=== PATIENT | male | born 1980 | race Caucasian/White ===

== ENCOUNTER → 2021-11-01 19:13 | Outpatient (CLI) | payer OTHER, SELFPAY | PROVIDERS: Visit Provider Nurse Practitioner Family | DX: U07.1 COVID-19 (principal) | CPT/HCPCS: C9803; U0003; U0005 ==

== ENCOUNTER → 2022-11-25 21:18 | Outpatient (CLI) | payer OTHER, SELFPAY ==
[2022-11-25 19:36] LABS: Basophils # 0.1 K/mm3 (0-0.2); Basophils % 0.5 % (0.1-2.0); Eosinophils # 0.2 K/mm3 (0.0-0.4); Eosinophils % 1.9 % (0.1-12.0); Hematocrit 46.2 % (42.0-52.0); Hemoglobin 15.2 g/dL (14.1-18.0); Lymphocytes # 2.8 K/mm3 (0.7-4.5); Lymphocytes % 24.4 % (10-50); Mean Corpuscular Hemoglobin 30.3 pg (27.0-31.2); Mean Corpuscular Volume 91.8 fl (80-94); Mean Platelet Volume 8.9 fl (7.4-10.4); Monocytes # 0.7 K/mm3 (0.1-1.0); Monocytes % 5.7 % (1.7-9.3); Neutrophils # 7.8 K/mm3 (1.8-7.8); Neutrophils % 67.5 % (37.0-80.0); Platelet Count 325 K/mm3 (142-424); Red Blood Count 5.03 M/mm3 (4.60-6.20); Red Cell Distribution Width 13.1 % (11.5-17.5); White Blood Count 11.5 K/mm3 (4.8-10.8)
[2022-11-25 20:05] LABS: Alanine Aminotransferase 39 U/L (12-78); Albumin Level 4.5 g/dl (3.5-5.0); Albumin/Globulin Ratio 1.5 (1.1-1.8); Alkaline Phosphatase 105 U/L (38-126); Anion Gap 13.8 mEq/L (5-15); Aspartate Amino Transferase 32 U/L (17-59); Bilirubin,Total 0.4 mg/dl (0.2-1.3); Blood Urea Nitrogen 23 mg/dl (9-20); Calcium 9.4 mg/dl (8.4-10.2); Carbon Dioxide 29 mmol/L (22.0-30.0); Chloride 100 mmol/L (98-107); Chol/HDL Ratio 5.3 (1-3.5); Cholesterol 181 mg/dl (140-200); Estimated Glomerular Filt Rate 66 ml/min (>60); GFR (African American) 80 ML/MIN (>60); Globulin 3.1 g/dL (1.3-3.2); Glucose 117 mg/dl (74-100); HDL Cholesterol 34 mg/dl (40-60); Potassium 4.8 mmoL/L (3.5-5.1); Sodium 138 mmol/L (136-145); Total Protein,Serum 7.6 g/dl (6.3-8.2); Triglycerides 218 mg/dl (30-150); VLDL Cholesterol 44 mg/dL (0-40)
[2022-11-25 20:16] LABS: Direct LDL Cholesterol 124.83 mg/dL (100-129)
[2022-11-25 20:18] LABS: Microalbumin/Creatinine Ratio 13.4
[2022-11-25 20:28] LABS: Creatinine,Urine Random 116 mg/dL (Not Estab.); Hemoglobin A1C 5.8 % (4.0-6.0)
[2022-11-25 20:33] LABS: Thyroid Stimulating Hormone 1.65 uIU/mL (0.465-4.68)
== END ==
PROVIDERS: PCP Nurse Practitioner; Visit Provider Nurse Practitioner
DX: I10 Essential (primary) hypertension (principal); R73.01 Impaired fasting glucose; E78.5 Hyperlipidemia, unspecified; E66.9 Obesity, unspecified; Z68.41 Body mass index [BMI] 40.0-44.9, adult
CPT/HCPCS: 80053; 80061; 82043; 82570; 83036; 84443; 85025

== ENCOUNTER → 2022-12-03 07:46 | Outpatient (CLI) | payer OTHER, SELFPAY ==
--- NOTE | 2022-12-03 07:47 | MR_ITS ---
FINAL REPORT CLINICAL HISTORY: migraine. Lightheadedness. FINDINGS: Multiplanar MR imaging of the brain was performed without and with contrast. There is no evidence of intracranial hemorrhage or mass. No abnormal extra-axial fluid collection is seen. The ventricular size is within normal limits. There is no evidence of shift of the midline structures. The posterior fossa and brainstem have an unremarkable appearance. No area of abnormal restricted diffusion is identified. No abnormal contrast enhancement is seen. There is a retention cyst or polyp in the right maxillary sinus. IMPRESSION: No acute intracranial abnormality identified. Reviewed, Interpreted and Dictated by Lewis Lynn III, MD Transcribed by Farzaneh Burton Authenticated and [facility]
== END ==
LOC: RAD 07:46
PROVIDERS: PCP Nurse Practitioner; Visit Provider Nurse Practitioner
DX: G43.909 Migraine, unspecified, not intractable, without status migrainosus (principal)
CPT/HCPCS: 70553; A9576

== ENCOUNTER → 2023-02-18 23:36 | Outpatient (CLI) | payer OTHER, SELFPAY ==
[2023-02-18 17:40] LABS: Basophils % 0.3 % (0.1-2.0); Eosinophils # 0.1 K/mm3 (0.0-0.4); Eosinophils % 1.3 % (0.1-12.0); Hemoglobin 15.2 g/dL (14.1-18.0); Lymphocytes # 2.8 K/mm3 (0.7-4.5); Lymphocytes % 30.6 % (10-50); Mean Corpuscular HGB Conc 33.8 g/dL (31.8-35.4); Mean Corpuscular Hemoglobin 31.2 pg (27.0-31.2); Mean Corpuscular Volume 92.3 fl (80-94); Mean Platelet Volume 8.9 fl (7.4-10.4); Monocytes # 0.6 K/mm3 (0.1-1.0); Monocytes % 6.2 % (1.7-9.3); Neutrophils # 5.6 K/mm3 (1.8-7.8); Neutrophils % 61.6 % (37.0-80.0); Platelet Count 269 K/mm3 (142-424); Red Blood Count 4.87 M/mm3 (4.60-6.20); Red Cell Distribution Width 13.1 % (11.5-17.5)
[2023-02-18 18:06] LABS: Erythrocyte Sedimentation Rate 14 mm/hr (0-15)
[2023-02-18 18:09] LABS: C-Reactive Protein 3.9 mg/L (0-4)
[2023-02-18 19:10] LABS: Vitamin B12 621 pg/mL (239-931)
[2023-02-18 19:12] LABS: Folate 6.23 ng/mL
[2023-02-20 09:14] LABS: Rapid Plasma Reagin Ab Titer Non Reactive (NonRea<1:1)
[2023-02-26 20:51] LABS: Antinuclear Antibodies (ANA) Negative
== END ==
PROVIDERS: Nurse Practitioner Family; PCP Nurse Practitioner; Visit Provider Nurse Practitioner
DX: R51.9 Headache, unspecified (principal); R06.83 Snoring; E66.01 Morbid (severe) obesity due to excess calories; Z68.41 Body mass index [BMI] 40.0-44.9, adult
CPT/HCPCS: 82607; 82746; 85025; 85651; 86038; 86140; 86225; 86235; 86593

== ENCOUNTER → 2023-03-03 19:11 | Outpatient (CLI) | payer OTHER, SELFPAY | PROVIDERS: PCP Family Medicine; Visit Provider Nurse Practitioner Family | DX: G47.33 Obstructive sleep apnea (adult) (pediatric) (principal); R51.9 Headache, unspecified; I10 Essential (primary) hypertension; R06.83 Snoring; E66.01 Morbid (severe) obesity due to excess calories; Z68.41 Body mass index [BMI] 40.0-44.9, adult | CPT/HCPCS: G0399 ==

== ENCOUNTER 2023-12-22 21:11 | Outpatient (CLI) | payer OTHER, SELFPAY ==
[2023-12-22 18:34] LABS: Basophils # 0.1 K/mm3 (0-0.2); Basophils % 0.6 % (0.1-2.0); Eosinophils # 0.2 K/mm3 (0.0-0.4); Eosinophils % 2.1 % (0.1-12.0); Hematocrit 50.2 % (42.0-52.0); Hemoglobin 16.5 g/dL (14.1-18.0); Lymphocytes # 1.4 K/mm3 (0.7-4.5); Lymphocytes % 17.6 % (10-50); Mean Corpuscular HGB Conc 32.9 g/dL (31.8-35.4); Mean Corpuscular Hemoglobin 32.2 pg (27.0-31.2); Mean Platelet Volume 9.4 fl (7.4-10.4); Monocytes # 0.5 K/mm3 (0.1-1.0); Monocytes % 6.4 % (1.7-9.3); Neutrophils % 73.4 % (37.0-80.0); Platelet Count 283 K/mm3 (142-424); Red Blood Count 5.12 M/mm3 (4.60-6.20); Red Cell Distribution Width 13.4 % (11.5-17.5); White Blood Count 8.2 K/mm3 (4.8-10.8)
[2023-12-22 18:47] LABS: Alanine Aminotransferase 50 U/L (12-78); Albumin Level 4.3 g/dl (3.5-5.0); Albumin/Globulin Ratio 1.5 (1.1-1.8); Alkaline Phosphatase 102 U/L (38-126); Anion Gap 13.3 mEq/L (5-15); Aspartate Amino Transferase 41 U/L (17-59); Bilirubin,Total 0.9 mg/dl (0.2-1.3); Blood Urea Nitrogen 21 mg/dl (9-20); Calcium 9.6 mg/dl (8.4-10.2); Carbon Dioxide 24 mmol/L (22.0-30.0); Chloride 106 mmol/L (98-107); Cholesterol 198 mg/dl (140-200); Estimated Glomerular Filt Rate 82 ml/min (>60); GFR (African American) 99 ML/MIN (>60); Globulin 2.8 g/dL (1.3-3.2); Glucose 104 mg/dl (74-100); HDL Cholesterol 33 mg/dl (40-60); Potassium 4.3 mmoL/L (3.5-5.1); Sodium 139 mmol/L (136-145); Total Protein,Serum 7.1 g/dl (6.3-8.2); Triglycerides 84 mg/dl (30-150); VLDL Cholesterol 17 mg/dL (0-40)
[2023-12-22 18:58] LABS: Direct LDL Cholesterol 129.28 mg/dL (100-129)
[2023-12-22 19:05] LABS: 25-OH Vitamin D, Total 25.8 ng/mL (30-100)
[2023-12-22 19:17] LABS: Thyroid Stimulating Hormone 1.01 uIU/mL (0.465-4.68)
[2023-12-22 19:36] LABS: Vitamin B12 861 pg/mL (239-931)
[2023-12-22 19:59] LABS: Microalbumin/Creatinine Ratio 15.6
[2023-12-22 20:01] LABS: Creatinine,Urine Random 139 mg/dL (Not Estab.)
[2023-12-22 20:17] LABS: Hemoglobin A1C 5.6 % (4.0-6.0)
[2023-12-24 10:11] LABS: HIV Screen 4th Generation wRfx Non Reactive (Non Reactive)
[2023-12-24 11:11] LABS: Rapid Plasma Reagin Ab Titer Non Reactive titer (NonRea<1:1)
[2023-12-24 12:53] LABS: HBsAg Screen Negative (Negative); HCV Ab Non Reactive (Non Reactive); Hep A Ab, IGM Negative (Negative); Hep B Core Ab, IgM Negative (Negative)
[2023-12-26 10:17] LABS: HSV 2 IgG, Type Spec <0.91
[2023-12-27 05:49] LABS: Neisseria gonorrhoeae, NAA Negative (Negative)
[2023-12-28 08:03] LABS: Trich vag NAA Negative
== END 2023-12-22 23:59 ==
LOC: LAB.DROPOF 21:11
PROVIDERS: PCP Nurse Practitioner; Visit Provider Nurse Practitioner
DX: I10 Essential (primary) hypertension (principal); R73.01 Impaired fasting glucose; E78.5 Hyperlipidemia, unspecified; E55.9 Vitamin D deficiency, unspecified; E66.9 Obesity, unspecified; Z68.39 Body mass index [BMI] 39.0-39.9, adult; Z11.3 Encounter for screening for infections with a predominantly sexual mode of transmission; Z11.4 Encounter for screening for human immunodeficiency virus [HIV]; Z20.2 Contact with and (suspected) exposure to infections with a predominantly sexual mode of transmission; Z79.899 Other long term (current) drug therapy
CPT/HCPCS: 80053; 80061; 80074; 82043; 82306; 82570; 82607; 83036; 84439; 84443; 85025; 86593; 86695; 86703; 86790; 87491; 87591; 87661; G0432

== ENCOUNTER 2025-01-25 09:20 | Outpatient (CLI) | payer OTHER, SELFPAY ==
[2025-01-25 18:33] LABS: Basophils # 0.1 K/mm3 (0-0.2); Basophils % 0.6 % (0.1-2.0); Eosinophils # 0.3 Kmm3 (0.0-0.4); Eosinophils % 3.1 % (0.1-12.0); Hematocrit 53.2 % (42.0-52.0); Hemoglobin 17.2 g/dL (14.1-18.0); Lymphocytes # 1.9 K/mm3 (0.7-4.5); Lymphocytes % 23.4 % (10-50); Mean Corpuscular HGB Conc 32.3 g/dL (31.8-35.4); Mean Corpuscular Hemoglobin 30.8 pg (27.0-31.2); Mean Corpuscular Volume 95.2 fl (80-94); Mean Platelet Volume 10.8 fl (7.4-10.4); Monocytes # 0.7 K/mm3 (0.1-1.0); Monocytes % 8.3 % (1.7-9.3); Neutrophils # 5.1 K/mm3 (1.8-7.8); Neutrophils % 64.2 % (37.0-80.0); Nucleated Red Blood Cells # 0 10^3/uL; Nucleated Red Blood Cells % 0 %; Platelet Count 283 K/mm3 (142-424); Red Blood Count 5.59 M/mm3 (4.60-6.20); Red Cell Distribution Width 12.7 % (11.5-17.5); Red Cell Distribution Width-SD 44.5 fL
[2025-01-25 19:06] LABS: Albumin Level 4.5 g/dl (3.5-5.0); Chloride 104 mmol/L (98-107); Potassium 5.6 mmoL/L (3.5-5.1); Sodium 140 mmol/L (136-145)
[2025-01-25 19:09] LABS: Alanine Aminotransferase 41 U/L (12-78); Albumin/Globulin Ratio 1.4 (1.1-1.8); Alkaline Phosphatase 104 U/L (38-126); Anion Gap 13.6 mEq/L (5-15); Aspartate Amino Transferase 34 U/L (17-59); Bilirubin,Total 0.7 mg/dl (0.2-1.3); Blood Urea Nitrogen 22 mg/dl (9-20); Calcium 9.8 mg/dl (8.4-10.2); Carbon Dioxide 28 mmol/L (22.0-30.0); Chol/HDL Ratio 5.1 (1-3.5); Cholesterol 230 mg/dl (140-200); Estimated Glomerular Filt Rate 73 ml/min (>60); GFR (African American) 88 ML/MIN (>60); Globulin 3.2 g/dL (1.3-3.2); Glucose 118 mg/dl (74-100); HDL Cholesterol 45 mg/dl (40-60); Total Protein,Serum 7.7 g/dl (6.3-8.2); Triglycerides 125 mg/dl (30-150); VLDL Cholesterol 25 mg/dL (0-40)
[2025-01-25 19:21] LABS: Direct LDL Cholesterol 158.69 mg/dL (100-129)
[2025-01-25 19:25] LABS: T4 (Thyroxine) 10.2 ug/dl (5.53-11.0)
[2025-01-25 19:39] LABS: Thyroid Stimulating Hormone 1.88 uIU/mL (0.465-4.68)
[2025-01-25 19:48] LABS: HIV Combo NEGATIVE (Negative)
[2025-01-25 20:02] LABS: Hepatitis C Ab Qual. W/ RFX NEGATIVE (Negative)
== END 2025-01-25 23:59 | disposition home or self-care (01) ==
LOC: LAB.DROPOF 01-28 10:12
PROVIDERS: PCP Nurse Practitioner Family; Visit Provider Nurse Practitioner Family
DX: I10 Essential (primary) hypertension (principal); E66.01 Morbid (severe) obesity due to excess calories; Z68.41 Body mass index [BMI] 40.0-44.9, adult; J30.2 Other seasonal allergic rhinitis; E78.5 Hyperlipidemia, unspecified; Z11.59 Encounter for screening for other viral diseases
CPT/HCPCS: 80053; 80061; 82306; 84436; 84443; 85025; 86803; 87389